=== PATIENT | male | born 1970 | race Caucasian/White ===

== ENCOUNTER → 2020-09-21 15:42 | Outpatient (BNVA) | payer OTHER, SELFPAY | PROVIDERS: PCP Internal Medicine; Referring Provider Internal Medicine; Visit Provider Urology | DX: Z76.89 Persons encountering health services in other specified circumstances (principal) ==

== ENCOUNTER 2021-10-24 14:28 | Outpatient (REF) | payer OTHER, SELFPAY ==
--- NOTE | ~2021-10-24 | US_ITS ---
EXAMINATION: US RETROPERITONEAL LIMITED (RENAL ONLY) CLINICAL INFORMATION: Calculus of kidney. COMPARISON: Renal ultrasound 05/26/2019. Ultrasound kidneys and bladder 06/09/2018. TECHNIQUE: Real-time imaging of the kidneys. FINDINGS: RIGHT KIDNEY: 12.0 x 4.3 x 4.4 cm (SAG x AP x TRV). The kidney is normal in size, contour, and echogenicity. Renal cortical thickness is normal. No calculi or focal parenchymal lesions. No hydronephrosis. LEFT KIDNEY: 11.4 x 4.7 x 6.6 cm (SAG x AP x TRV). The kidney is normal in size, contour, and echogenicity. Renal cortical thickness is normal. No focal parenchymal lesions or hydronephrosis. Echogenic focus lower pole left kidney likely a nonobstructing stone 6 x 2 mm and 9 x 7 mm. US/US renal BI IMPRESSION: Redemonstration of probably nonobstructing stone lower pole left kidney. No hydronephrosis.
== END 2021-10-24 14:29 | disposition home or self-care (01) ==
LOC: HO.US 14:28
PROVIDERS: PCP Internal Medicine; Visit Provider Urology
DX: N20.0 Calculus of kidney (principal); R31.29 Other microscopic hematuria
CPT/HCPCS: 76775

== ENCOUNTER → 2021-11-07 11:27 | Outpatient (BNVA) | payer OTHER, SELFPAY | PROVIDERS: Visit Provider Urology ==

== ENCOUNTER 2021-11-21 05:55 | Day surgery (SDC) | payer OTHER, SELFPAY ==
[2021-11-15 11:02] VITALS: BMI 31.7
--- NOTE | 2021-11-20 09:42 | HO.ANESPROP2 ---
Documented by User: Benita Grayson NP 11/20/21 09:42 HPI - Anesthesia Eval Consult details Narrative: 51yo M for Left ESWL No prev ESWL on record [facility] Active Problems Active Problems: All Active Problems (Updated 11/15/21 @ 11:01 by Eboni Rollins, RN) Microscopic hematuria (Acute) Weak urinary stream (Acute) Bladder outlet obstruction (Acute) Nocturia associated with benign prostatic hyperplasia (Acute) Nephrolithiasis (Acute) Past Medical History Medical History Arthritis Kidney stones Smoker Surgical History Surgical History (Updated 11/15/21 @ 11:01 by Eboni Rollins, RN) History of left knee surgery History of right inguinal hernia repair History of right knee surgery History of shoulder surgery Social History Social History Are you a primary home care and home health aides teacher to a significant other at home: No Do you presently have visiting nurse or other home services: No Patient Tobacco Use Status: Current everyday Tobacco user Tobacco use type: Cigarette Cigarette Packs Per Day: 0.5 Cigarettes Per Day: 10.0 Years Smoked: 10 Use of substances other than those prescribed or required for medical reasons: No Have you been hit, kicked, punched, or otherwise hurt by someone within the past year? If so, by whom?: No Are you DNR?: No Advance Directives: No Advance Directives Information Provided: No Advance Directives on File: No Recently lost weight without trying: No Eating poorly because of decreased appetite: No Nutrition Risks: No Nutritional Risk Meds Allergies Allergy/AdvReac Type Severity Reaction Status Date / Time No Known Allergies Allergy Verified 11/15/21 11:01 Exam Exam Date and Time: November 20, 2021 0942 Height,Weight and Vital Signs: Height 5 ft 9 in Weight 97.522 kg Assessment and Plan Assessment Anesthesia Assessment: Chart Reviewed Documented by User: Sonja Jean MD 11/21/21 07:02 [facility] Past Medical History Medical History Arthritis Kidney stones Smoker Family History Family history of problems with anesthesia: No Surgical History Surgical History (Updated 11/15/21 @ 11:01 by Eboni Rollins RN) History of left knee surgery History of right inguinal hernia repair History of right knee surgery History of shoulder surgery History of Problems with Anesthesia: No Social History Social History Are you a primary home care and home health aides teacher to a significant other at home: No Do you presently have visiting nurse or other home services: No Patient Tobacco Use Status: Current everyday Tobacco user Tobacco use type: Cigarette Cigarette Packs Per Day: 0.5 Cigarettes Per Day: 10.0 Years Smoked: 10 Use of substances other than those prescribed or required for medical reasons: No Have you been hit, kicked, punched, or otherwise hurt by someone within the past year? If so, by whom?: No Are you DNR?: No Advance Directives: No Advance Directives Information Provided: No Advance Directives on File: No Recently lost weight without trying: No Eating poorly because of decreased appetite: No Nutrition Risks: No Nutritional Risk Meds Allergies Allergy/AdvReac Type Severity Reaction Status Date / Time No Known Allergies Allergy Verified 11/15/21 11:01 Exam Airway Mallampati Class: II (Caps laterally) TM Dist: >3cm Neck ROM: Full Heart: rrr Lungs: cta Assessment and Plan Assessment Anesthesia Assessment: Anesthesia Plan Discussed and Chart Reviewed Final Anesthetic Review Family History of Problems with Anesthesia: No History of Problems with Anesthesia: No NPO: Yes ASA Class: II Final Preanesthetic Review: No Changes in Pt Med Stat, Meds/Allgs Chart Reviewed and Consent Obtained/Reviewed Patient Risk: Intermediate Procedure Risk: Intermediate Anesthetic Plan Anesthetic Plan: MAC: Disposition: Standard PACU
--- NOTE | ~2021-11-21 | XR_ITS ---
EXAMINATION: XR ABDOMEN KUB CLINICAL INDICATION: Nephrolithiasis. COMPARISON: Ultrasound renal 10/24/2021. TECHNIQUE: AP view of the abdomen. FINDINGS: There is scattered stool in the colon without any significant distention. There is no organomegaly. No radiopaque calculi. There is a right inguinal hernia repair and a phlebolith in left pelvis. No gross bony abnormality. XR/XR KUB IMPRESSION: No radiopaque calculi seen. Radiopaque density in the left pelvis is most likely a phlebolith.
[2021-11-21 06:43] VITALS: BP 112/77; PULSE 71; RESP 16; TEMP 36.2; O2SAT 96
[2021-11-21] MEDS: Lactated Ringers 1,000 ML 100 ML IVCONT (06:59)
--- NOTE | 2021-11-21 07:37 | MHC.SHP ---
Pre-Procedural Eval Section A Date of Service: 11/21/21 The patient is an INPATIENT: No Changes since office visit: No Cold of Flu in the past 2 weeks, No New Medical Problems, No Changes in Medication and No Patient answered all questions The History & Physical has been completed within 30 days and I have reviewed it.: Yes Section B Chief Complaint: calculus of kidney Details of Present Illness: and trial of alpha vickie Allergies: Allergies Allergy/AdvReac Type Severity Reaction Status Date / Time No Known Allergies Allergy Verified 11/15/21 11:01 Plan Diagnosis/Plan: Unchanged (Left ESWl and cystoscopy) I have reviewed the history and physical and performed a pertinent physical examination on my patient. No changes have occurred unless specified.
--- NOTE | 2021-11-21 08:11 | P.OP_ITS ---
Operative Note Operative Note Date of Service: 11/21/21 Narrative: PreOperative Diagnosis: Left Renal stones Post Operative Diagnosis: Left Renal stones Procedure: Left ESWL Surgeon: Dr Julio Peralta Anesthesia: mac/sedation Indications for procedure: The patient understands ESWL may be a staged procedure and subsequent intervention may be required based on imaging after ESWL. They also understand there is a risk of bleeding to the kidney, infection, damage to adjacent organs, and stone migration following the procedure. - Imaging ultrasound with left 8 mm stone Procedure: After informed consent was verified the patient was brought to the operating room and placed in a supine position. Anesthesia was performed per protocol. Safety pause time-out was performed. Imaging was displayed in the room and laterality confirmed. ESWL was performed. The 1st 500 shocks were performed at 60 hertz. These were performed with increasing power. Once maximum power was reached the rate was increased to 180 hertz. A total of 2500 shocks were given. Targetted imaging with ultrasound/fluoroscopy showed stone smudging suggestive of disintegration. The patient tolerated the procedure well and was transferred to the recovery area upon completion. Post procedure imaging will be organized. There was no e vidence for flank discoloration.
[2021-11-21 08:34] VITALS: BP 113/77; PULSE 77; RESP 16; TEMP 36.2; O2SAT 96
[2021-11-21 08:50] VITALS: BP 116/87; PULSE 73; RESP 16; TEMP 36.3; O2SAT 96
[2021-11-21] MEDS: Acetaminophen 325 MG TABLET 650 MG PO (08:50)
== END 2021-11-21 09:40 | disposition home or self-care (01) ==
PROVIDERS: PCP Internal Medicine; Visit Provider Urology
PROC: (CPT 50590; principal; 2021-11-21 07:30)
DX: N20.0 Calculus of kidney (principal); N40.1 Benign prostatic hyperplasia with lower urinary tract symptoms; R35.1 Nocturia; R31.29 Other microscopic hematuria; N32.0 Bladder-neck obstruction; R39.12 Poor urinary stream; Z79.899 Other long term (current) drug therapy; F17.210 Nicotine dependence, cigarettes, uncomplicated
CPT/HCPCS: 50590; 74018; J2250; J3010

== ENCOUNTER 2021-11-27 15:14 | Outpatient (REF) | payer OTHER, SELFPAY ==
[2021-11-27 16:13] LABS: Appearance Urine CLEAR; Color Urine DK YELLOW; Glucose Urine UA NEG (NEG); Leukocyte Esterase Urine NEG (NEG); Nitrite Urine NEG (NEG); Specific Gravity - Urine 1.025 (1.005-1.025); Urine Blood 1+ (NEG); Urine Ketones NEG (NEG); Urine Protein NEG (NEG-TRACE)
[2021-11-27 16:33] LABS: Bacteria Urine 2+ /LPF; Mucus Urine 1+ /LPF; Squamous Epithelial Cell Urine 1+ /LPF
== END 2021-11-27 15:15 | disposition home or self-care (01) ==
LOC: HO.LAB 15:14
PROVIDERS: PCP Internal Medicine; Visit Provider Urology
DX: N20.0 Calculus of kidney (principal)
CPT/HCPCS: 81001; 87086; 87088; 87186

== ENCOUNTER → 2021-12-12 08:42 | Outpatient (BNVA) | payer OTHER, SELFPAY | PROVIDERS: PCP Internal Medicine; Visit Provider Urology | DX: N20.0 Calculus of kidney (principal) | CPT/HCPCS: 99212 ==

== ENCOUNTER 2021-12-19 13:04 | Outpatient (REF) | payer OTHER, SELFPAY ==
--- NOTE | ~2021-12-19 | US_ITS ---
EXAMINATION: US RETROPERITONEAL LIMITED (RENAL ONLY) CLINICAL INFORMATION: Calculus of kidney. COMPARISON: X-ray KUB 11/21/2021. Renal ultrasound 10/24/2021 and 05/26/2019. TECHNIQUE: Real-time imaging of the kidneys. FINDINGS: RIGHT KIDNEY: 10.3 x 4.7 x 5.9 cm (SAG x AP x TRV). The kidney is normal in size, contour, and echogenicity. Renal cortical thickness is normal. No calculi or focal parenchymal lesions. No hydronephrosis. LEFT KIDNEY: 12.1 x 5.7 x 5.5 cm (SAG x AP x TRV). The kidney is normal in size, contour, and echogenicity. Renal cortical thickness is normal. No focal parenchymal lesions or hydronephrosis. Nonshadowing echogenic focus in the left renal lower pole measures up to 6 mm potentially representing a nonshadowing calculus. US/US renal BI IMPRESSION: 1. Nonshadowing echogenic focus in the left renal lower pole measures up to 6 mm potentially representing a nonshadowing calculus without hydronephrosis, stable. 2. No right-sided nephrolithiasis or hydronephrosis.
== END 2021-12-19 13:05 | disposition home or self-care (01) ==
LOC: HO.US 13:04
PROVIDERS: PCP Internal Medicine; Visit Provider Urology
DX: N20.0 Calculus of kidney (principal)
CPT/HCPCS: 76775

== ENCOUNTER → 2022-06-14 13:15 | Outpatient (BNVA) | payer OTHER, SELFPAY | PROVIDERS: PCP Internal Medicine; Visit Provider Urology | DX: R97.20 Elevated prostate specific antigen [PSA] (principal); R31.29 Other microscopic hematuria; N20.0 Calculus of kidney | CPT/HCPCS: 99212 ==

== ENCOUNTER 2022-06-20 06:00 | Outpatient (REF) | payer OTHER, SELFPAY ==
[2022-06-20 08:14] LABS: PSA,Total (Free>4and<10) 4.03 ng/mL (0.00-4.00)
[2022-06-21 08:52] LABS: Free Prostate Spec Ag 0.5 ng/mL; Percent Free Prostate Spec Ag 13 % (calc) (>25); Prostate Specific Ag Total 3.9 ng/mL (< OR = 4.0)
== END 2022-06-20 06:01 | disposition home or self-care (01) ==
LOC: HO.LAB 06:00
PROVIDERS: PCP Internal Medicine; Visit Provider Urology
DX: R97.20 Elevated prostate specific antigen [PSA] (principal); Z12.5 Encounter for screening for malignant neoplasm of prostate
CPT/HCPCS: 36415; 84153; 84154

== ENCOUNTER 2022-10-18 13:29 | Outpatient (REF) | payer OTHER, SELFPAY ==
[2022-10-18 15:04] LABS: PSA,Total (Free>4and<10) 4.13 ng/mL (0.00-4.00)
[2022-10-22 07:29] LABS: Free Prostate Spec Ag 0.7 ng/mL; Percent Free Prostate Spec Ag 18 % (calc) (>25)
== END 2022-10-18 13:30 | disposition home or self-care (01) ==
LOC: HO.LAB 13:29
PROVIDERS: PCP Internal Medicine; Visit Provider Urology
DX: R97.20 Elevated prostate specific antigen [PSA] (principal); Z12.5 Encounter for screening for malignant neoplasm of prostate
CPT/HCPCS: 36415; 84153; 84154

== ENCOUNTER 2022-10-29 12:46 | Outpatient (REF) | payer OTHER, SELFPAY ==
[2022-10-29 17:17] LABS: Urine Cytology See Pathology rpt
== END 2022-10-29 12:47 | disposition home or self-care (01) ==
LOC: HO.LAB 12:46
PROVIDERS: PCP Internal Medicine; Visit Provider Urology
DX: R31.29 Other microscopic hematuria (principal); R39.12 Poor urinary stream; R97.20 Elevated prostate specific antigen [PSA]
CPT/HCPCS: 51798; 88112; 99212

== ENCOUNTER 2022-12-10 15:04 | Outpatient (REF) | payer OTHER, SELFPAY ==
--- NOTE | ~2022-12-10 | US_ITS ---
EXAMINATION: US RETROPERITONEAL LIMITED (RENAL ONLY) CLINICAL INFORMATION: Renal calculus. COMPARISON: Prior renal ultrasound 12/19/2021. TECHNIQUE: Ultrasound of the kidneys was performed. FINDINGS: RIGHT KIDNEY: 11.6 x 4.3 x 6.4 cm (SAG x AP x TRV). The kidney is normal in size, contour, and echogenicity. Renal cortical thickness is normal. No calculi or focal parenchymal lesions. No hydronephrosis. LEFT KIDNEY: 12.4 x 5.6 x 4.8 cm (SAG x AP x TRV). The kidney is normal in size, contour, and echogenicity. Renal cortical thickness is normal. There is a linear echogenic area in the cortex on the left 7 mm below the renal capsule that measures 4 x 2 x 3 mm. In retrospect I believe this can be seen on the prior exam (image 35/35). No additional calculi or focal parenchymal lesions. No hydronephrosis. Incidental note made of hepatic steatosis. US/US renal BI IMPRESSION: A 4 mm echogenic focus in the left kidney. This could represent a tiny calcification. It is difficult to determine whether this is a stone or parenchymal calcification. Incidentally noted hepatic steatosis.
== END 2022-12-10 15:05 | disposition home or self-care (01) ==
LOC: HO.US 15:04
PROVIDERS: Visit Provider Urology
DX: N20.0 Calculus of kidney (principal)
CPT/HCPCS: 76775

== ENCOUNTER 2022-12-13 07:37 | Outpatient (REF) | payer OTHER, SELFPAY ==
[2022-12-13 07:46] VITALS: BMI 32.5
[2022-12-13 07:48] VITALS: BP 140/94; PULSE 84; RESP 16; TEMP 36.4; O2SAT 96
--- NOTE | 2022-12-13 08:15 | W.PM.OPN ---
Operative Note Operative Note Date of Service: 12/13/22 Narrative: Preoperative diagnosis: Elevated PSA Postoperative diagnosis: Elevated PSA Procedure: 1. transrectal ultrasound measurement of prostate 2. transrectal ultrasound-guided pudendal nerve block 3. transrectal ultrasound-guided prostate biopsy 12 core Surgeon: Dr. Julio Peralta Anesthetic: Local Indications for procedure: Elevated PSA 4.2 Procedure: After informed consent was verified, the patient was brought into the procedure area and lay left-hand side down on the table. Patient identity confirmed. Perioperative antibiotics confirmed. Safety pause time out performed. SACHIN performed to dilate rectal sphincter Iodine 10cc with Gel was placed per rectum Ultrasound probe was placed per rectum The prostate was measured in 3 dimensions Total volume equals 55 gm No cystic structures were noted No calcifications were noted at the surgical margin The prostate was otherwise homogeneous in nature An ultrasound-guided pudendal nerve block was performed using 10 cc of 1% lidocaine. 8 cc was placed at the base and 2 cc of the apex. A 12 core biopsy was performed with 6 cores each side. Two cores were taken at the apex, mid and base. Cores were spaced between lateral and medial. He tolerated the procedure well. Was able to ambulate to bathroom after 5 minutes. Printed instructions regarding antibiotic use and common side effects such as low-grade temperature, potential infection and bleeding were given Pathology: 12 core prostate biopsy.
[2022-12-13 08:20] VITALS: BP 149/83; PULSE 76; RESP 16; O2SAT 97
== END 2022-12-13 07:38 | disposition home or self-care (01) ==
LOC: HO.MS 07:37
PROVIDERS: PCP Internal Medicine; Visit Provider Urology
PROC: (CPT 55700; principal; 2022-12-13 08:00)
DX: R97.20 Elevated prostate specific antigen [PSA] (principal); N42.31 Prostatic intraepithelial neoplasia
CPT/HCPCS: 55700; 76942; 88305; 88344

== ENCOUNTER → 2022-12-20 12:15 | Outpatient (BNVA) | payer OTHER, SELFPAY | PROVIDERS: PCP Internal Medicine; Visit Provider Urology | DX: Z13.89 Encounter for screening for other disorder (principal) ==

== ENCOUNTER 2023-09-02 06:22 | Outpatient (REF) | payer OTHER, SELFPAY ==
[2023-09-02 07:47] LABS: PSA,Total (Free>4and<10) 3.43 ng/mL (0.00-4.00)
== END 2023-09-02 06:23 | disposition home or self-care (01) ==
LOC: HO.LAB 06:22
PROVIDERS: PCP Internal Medicine; Visit Provider Urology
DX: Z12.5 Encounter for screening for malignant neoplasm of prostate (principal); R97.20 Elevated prostate specific antigen [PSA]
CPT/HCPCS: 36415; 84153

== ENCOUNTER 2023-09-05 08:49 | Outpatient (AMB) | payer OTHER, SELFPAY ==
--- NOTE | 2023-09-05 08:50 | MHC.OFFVIS ---
Intake Intake Visit Reasons: 6m/PSA(set) Intake Note: Patient is Present for Telephone Follow Up For Urology Med: Finasteride, Terazosin Antibiotic Allergy: None Blood Thinner: None Allergies No Known Allergies Allergy (Verified 09/05/23 08:51) Medication List - Last Reconciled 09/05/23 by Julio Peralta MD finasteride 5 mg PO BEDTIME 90 days terazosin 5 mg PO BEDTIME 90 days HPI HPI Comments History of Present Illness Details Jun is a pleasant male. He is a patient of Dr. Hamilton. 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 Telemedicine Evaluation 15 min Conultation [employer] [place] Video attempted PSA 09/11 3.4 Continue 6 monthly review Elevated PSA PSA 04/10 9.3 ([place]), 07/11 4.0, 10/10 4.0 18% Off finasteride Maternal Uncle with Prostate Cancer 12/12 Biopsy - HGPIN - Volume 55gm Lower urinary tract symptoms Noticed that he is developing weakness of stream Has feelings of incomplete emptying with restriction, Has nocturia x2 Current medication terazosin 5 mg Prior medication tamsulosin Nephrolithiasis Kidney stones found on the ultrasound imaging for hematuria Left sided 2 stones - 6 mm and 9mm Intervention - 12/11 left ESWL Imaging - 01/08 US 6mm Microscopic Hematuria: Yearly review Microscopic hematuria 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 Since the last visit the patient has has not noticed gross hematuria, continues to test postive for microscopic hematuria. Relevant medical history for no pertinent medical history - test equivocal over many years - ex tobacco. Associated symptoms include dysuria No frequency No urgency No decreased urinary stream No pain No nausea No weight loss No Radiographic imagin/18 , US renal. Radiology report 06/06 left renal stone 6mm, 50 gm prostate 06/07 , renal US - no genitourinary abnormality. Other investigations cytology, , normal. Cystoscopy findings 06/07 high riding bladder neck, irritation of bladder prostate from coffee. [facility] Medical History Arthritis Smoker Kidney stones Surgical History History of right inguinal hernia repair History of shoulder surgery History of right knee surgery History of left knee surgery Social History Are you a primary intensive care nurse to a significant other at home: No Do you presently have visiting nurse or other home services: No Patient Tobacco Use Status: Current everyday Tobacco user Tobacco use type: Cigarette Cigarette Packs Per Day: 0.5 Cigarettes Per Day: 10.0 Years Smoked: 10 Review of Systems Const All systems reviewed & are unremarkable except as noted in HPI and below Reports no additional complaints Resp Reports no additional complaints GI Reports no additional complaints Reports as per HPI Musc Reports no additional complaints Physical Exam Telemedicine evaluation Appropriate responses Regular breathing rate and rhythm HEENT Head: Yes normal to inspection Ears: hearing grossly normal bilaterally Eyes General: appearance normal, both eyes and all related structures Neck Neck: Yes normal visual inspection Chest Chest palpation & inspection: normal inspection of the chest Resp Effort & Inspection: normal respiratory effort and able to speak in complete sentences Assessment & Plan Assessment & Plan (1) Elevated PSA: Code(s): R97.20 - Elevated prostate specific antigen [PSA] (2) Bladder outlet obstruction: Code(s): N32.0 - Bladder-neck obstruction (3) Nocturia associated with benign prostatic hyperplasia: Code(s): N40.1 - Benign prostatic hyperplasia with lower urinary tract symptoms; R35.1 - Nocturia Plan Continue 6 month review Continue terazosin PSA in 6 months Orders: Orders Prostate Specific Antigen 09/02/23 R97.20 - Elevated prostate specific antigen [PSA] PSA,Total (Free>4and<10) 6 Months N32.0 - Bladder-neck obstruction Medications: Refilled terazosin 5 mg PO BEDTIME 90 caps 1RF 90 days N32.0 - Bladder-neck obstruction, N40.1 - Benign prostatic hyperplasia with lower urinary tract symptoms, R35.0 - Frequency of micturition Discontinued finasteride Discontinued Reason: Doctor's Order 5 mg PO BEDTIME 90 days 90 tabs 1RF N32.0 - Bladder-neck obstruction Patient Instructions: Imaging studies, laboratory and physical exam results were discussed and reviewed in detail. No major barriers to patient understanding were identified. An opportunity to ask questions regarding the treatment plan was provided. All questions were answered. The patient expressed understanding and agreement with the above treatment plan. The patient is aware they should contact our office by phone for worsening of their current condition or the appearance of new urologic symptoms. Compliance is encouraged with any medications and followup testing that is ordered. It is a privilege to participate in the urologic care of your patient. If you have any questions or concerns regarding treatment for the above conditions, or other urologic issues, please do not hesitate to contact me. The office telephone contact is [phone]. This note is constructed using voice recognition software. While every effort has been made to ensure accuracy steel post installer supervisor errors may have been included. Yours sincerely, Dr Julio Peralta MD, [facility] - Urology Providers of Expert, Compassionate Care for the Genitourinary System Telehealth Telehealth Location of provider rendering services: practice address Location of patient: address on file Patient Identification confirmed using: Name, : Yes Telehealth method: video Patient verbally consented to treatment: Yes Patient verbally consented to billing insurance company: Yes Patient informed of any privacy concerns related to visit: Yes Coding Level of Care Code Est Pt Level 4 (28143) Diagnoses Elevated PSA R97.20 Bladder outlet obstruction N32.0 Nocturia associated with benign prostatic hyperplasia N40.1; R35.1
== END 2023-09-05 09:38 | disposition home or self-care (01) ==
LOC: HO.HUSH 08:50
PROVIDERS: PCP Internal Medicine; Visit Provider Urology
DX: R97.20 Elevated prostate specific antigen [PSA] (principal); N32.0 Bladder-neck obstruction; N40.1 Benign prostatic hyperplasia with lower urinary tract symptoms; R35.1 Nocturia
CPT/HCPCS: 99214

== ENCOUNTER → 2023-09-05 08:49 | Outpatient (BNVA) | payer OTHER, SELFPAY | PROVIDERS: PCP Internal Medicine; Visit Provider Urology | DX: N32.0 Bladder-neck obstruction (principal); R97.20 Elevated prostate specific antigen [PSA]; N40.1 Benign prostatic hyperplasia with lower urinary tract symptoms; N13.8 Other obstructive and reflux uropathy; R35.1 Nocturia | CPT/HCPCS: 99212 ==

== ENCOUNTER 2024-05-15 07:07 | Outpatient (REF) | payer OTHER, SELFPAY ==
[2024-05-15 09:19] LABS: PSA,Total (Free>4and<10) 2.97 ng/mL (0.00-4.00)
== END 2024-05-15 07:08 | disposition home or self-care (01) ==
LOC: HO.LAB 07:07
PROVIDERS: Visit Provider Urology
DX: N32.0 Bladder-neck obstruction (principal); Z12.5 Encounter for screening for malignant neoplasm of prostate
CPT/HCPCS: 36415; 84153

== ENCOUNTER 2024-05-19 08:31 | Outpatient (AMB) | payer OTHER, SELFPAY ==
--- NOTE | 2024-05-19 08:34 | MHC.OFFVIS ---
Intake Visit Reasons: 6M Follow Up-PSA/PVR/Med Review(set) Intake Note: Patient presents for follow up on: elevated psa and nocturia Urology Med: Terazosin Antibiotic Allergy: None Blood Thinner: None PVR: 35ml's Production Team Leader Required: No Accompanied by: Self / Same As Patient Allergies No Known Allergies Allergy (Verified 05/19/24 08:38) Medication List - Last Reconciled 05/19/24 by Julio Peralta MD terazosin 5 mg PO BEDTIME 90 days HPI Comments Details: Jun is a pleasant male. He is a patient of Dr. Hamilton. 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 Effective voiding performance Happy with current situation PSA 05/12 3.0 Twelve month follow-up Elevated PSA [place] 9[place] 07/11 4.0, 10/10 4.0 18% Off finasteride Maternal Uncle with Prostate Cancer 12/12 Biopsy - HGPIN - Volume 55gm Lower urinary tract symptoms Noticed that he is developing weakness of stream Has feelings of incomplete emptying with restriction, Has nocturia x2 Current medication terazosin 5 mg Prior medication tamsulosin Nephrolithiasis Kidney stones found on the ultrasound imaging for hematuria Left sided 2 stones - 6 mm and 9mm Intervention - 12/11 left ESWL Imaging - 01/08 US 6mm Microscopic Hematuria: Yearly review 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 Since the last visit the patient has has not noticed gross hematuria, continues to test postive for microscopic hematuria. Relevant medical history for no pertinent medical history - test equivocal over many years - ex tobacco. Associated symptoms include dysuria No frequency No urgency No decreased urinary stream No pain No nausea No weight loss No Radiographic imagin/18 , US renal. Radiology report 06/06 left renal stone 6mm, 50 gm prostate 06/07 , renal US - no genitourinary abnormality. Other investigations cytology, , normal. Cystoscopy findings 06/07 high riding bladder neck, irritation of bladder prostate from coffee. [facility] Medical History Arthritis Smoker Kidney stones Surgical History History of right inguinal hernia repair History of shoulder surgery History of right knee surgery History of left knee surgery Social History Are you a primary personal care worker to a significant other at home: No Do you presently have visiting nurse or other home services: No Patient Tobacco Use Status: Current everyday Tobacco user Tobacco use type: Cigarette Cigarette Packs Per Day: 0.5 Cigarettes Per Day: 10.0 Years Smoked: 10 Review of Systems Const Denies chills and Denies fever(s) Card Reports no additional complaints and Denies syncope Resp Denies cough GI Denies abdominal pain and Denies heartburn Reports as per HPI and Denies change in libido Neuro Denies syncope Psych Denies change in libido Endo Denies change in libido Physical Exam Const General: cooperative, healthy appearing, comfortable and no acute distress Orientation/consciousness: patient oriented x3 HEENT Face and sinus: Yes normal facial exam Mouth: moist mucous membranes Neck Neck: Yes normal visual inspection, Yes full ROM and Yes trachea midline Chest Chest palpation & inspection: normal inspection of the chest Resp Effort & Inspection: normal respiratory effort, able to speak in complete sentences and no respiratory distress GI Inspection: Yes normal to inspection Back/Spine/Pelvis Cervical Spine: normal cervical lordosis Thoracic/Lumbar Spine: thoracic and lumbar spine normal to inspection Skin General skin exam: no rashes or lesions noted Neuro General: patient oriented x3, gait normal, tone normal and moves all extremities Extrem General: Yes normal to inspection and Yes capillary refill normal Office Procedures Post Void Residual Post Residual Void Post Void Residual (PVR): 35 [id number] Void Residual by ultrasound Results AMB Urinalysis, Automated UA Leukoctes 0 Shruthi/uL Last Edit by Juan Manuel Velasco on 05/19/24 08:47 UA Nitrite Last Edit by Juan Manuel Velasco on 05/19/24 08:47 UA Urobilinogen 0.2 mg/dL Last Edit by Juan Manuel Velasco on 05/19/24 08:47 UA Protein 0 mg/dL Last Edit by Juan Manuel Velasco on 05/19/24 08:47 UA pH 6.0 Last Edit by Juan Manuel Velasco on 05/19/24 08:47 UA Blood 10 Eleazar/uL Last Edit by Juan Manuel Velasco on 05/19/24 08:47 UA Specific [place] 1.015 Last Edit by Juan Manuel Velasco on 05/19/24 08:47 UA Ketone Negative Last Edit by Juan Manuel Michellexuan on 05/19/24 08:47 UA Bilirubin 0 mg/dL Last Edit by Juan Manuel Velasco on 05/19/24 08:47 UA Glucose 0 mg/dL Last Edit by Juan Manuel Velasco on 05/19/24 08:47 Results Reviewed Results Reviewed: Laboratory Last Values Urine pH (Auto) 6.0 05/19/24 08:38 Specific [place] (Auto) 1.015 05/19/24 08:38 Urine Protein (Auto) 0 mg/dL 05/19/24 08:38 Glucose (UA)(Auto) 0 mg/dL 05/19/24 08:38 Urine Ketones (Auto) Negative 05/19/24 08:38 Urine Blood (Auto) 10 Eleazar/uL 05/19/24 08:38 Urine Bilirubin (Auto) 0 mg/dL 05/19/24 08:38 Urine Urobilinogen (Auto) 0.2 mg/dL 05/19/24 08:38 Leukocyte Esterase (Auto) 0 Shruthi/uL 05/19/24 08:38 Assessment & Plan Assessment & Plan (1) Elevated PSA: Code(s): R97.20 - Elevated prostate specific antigen [PSA] Category: Medical (2) Bladder outlet obstruction: Code(s): N32.0 - Bladder-neck obstruction Category: Medical (3) Weak urinary stream: Code(s): R39.12 - Poor urinary stream Category: Medical Plan Twelve month follow-up PSA and PVR Orders: Orders Urine Cytology Today R31.29 - Other microscopic hematuria AMB Urinalysis Automated Today Z13.9 - Encounter for screening, unspecified AMB Post Void Residual by ultrasound Today R39.12 - Poor urinary stream Prostate Specific Antigen 364 Days N32.0 - Bladder-neck obstruction Medications: Refilled terazosin 5 mg PO BEDTIME 90 caps 3RF 90 days N32.0 - Bladder-neck obstruction, N40.1 - Benign prostatic hyperplasia with lower urinary tract symptoms, R35.0 - Frequency of micturition Patient Instructions: Imaging studies, laboratory and physical exam results were discussed and reviewed in detail. No major barriers to patient understanding were identified. An opportunity to ask questions regarding the treatment plan was provided. All questions were answered. The patient expressed understanding and agreement with the above treatment plan. The patient is aware they should contact our office by phone for worsening of their current condition or the appearance of new urologic symptoms. Compliance is encouraged with any medications and followup testing that is ordered. It is a privilege to participate in the urologic care of your patient. If you have any questions or concerns regarding treatment for the above conditions, or other urologic issues, please do not hesitate to contact me. The office telephone contact is [phone]. This note is constructed using voice recognition software. While every effort has been made to ensure accuracy process trainer errors may have been included. Yours sincerely, Dr Julio Peralta MD, [facility] - Urology Providers of Expert, Compassionate Care for the Genitourinary System Coding Level of Care Code Est Pt Level 4 (58850) Diagnoses Elevated PSA R97.20 Bladder outlet obstruction N32.0 Weak urinary stream R39.12 CPT Codes Post Residual Void - PVR CPT Code: 04489-Plpi Void Residual by ultrasound ([id number])
== END 2024-05-19 08:57 | disposition home or self-care (01) ==
PROVIDERS: PCP Internal Medicine; Visit Provider Urology
DX: R97.20 Elevated prostate specific antigen [PSA] (principal); N32.0 Bladder-neck obstruction; R39.12 Poor urinary stream; Z13.9 Encounter for screening, unspecified
CPT/HCPCS: 99214

== ENCOUNTER 2024-05-19 08:31 | Outpatient (REF) | payer OTHER, SELFPAY ==
[2024-05-19 16:34] LABS: Urine Cytology See Pathology rpt
== END 2024-05-19 08:32 | disposition home or self-care (01) ==
LOC: HO.LNP 08:31
PROVIDERS: PCP Internal Medicine; Visit Provider Urology
DX: R97.20 Elevated prostate specific antigen [PSA] (principal); R39.12 Poor urinary stream; N32.0 Bladder-neck obstruction
CPT/HCPCS: 51798; 81003; 88112; 99212

== ENCOUNTER 2025-06-10 06:36 | Outpatient (REF) | payer OTHER, SELFPAY ==
[2025-06-10 08:15] LABS: Prostate Specific Antigen 3.86 ng/mL (<0.05-4.0)
== END 2025-06-10 06:37 | disposition home or self-care (01) ==
LOC: HO.LAB 06:36
PROVIDERS: PCP Internal Medicine; Visit Provider Urology
DX: N32.0 Bladder-neck obstruction (principal); Z12.5 Encounter for screening for malignant neoplasm of prostate
CPT/HCPCS: 36415; 84153

== ENCOUNTER 2025-06-14 13:54 | Outpatient (AMB) | payer OTHER, SELFPAY ==
--- NOTE | 2025-06-14 13:53 | MHC.OFFVIS ---
Intake Visit Reasons: 1y/PSA(psa?) Intake Note: Patient presents for follow up on: elevated psa and nocturia Urology Med: Terazosin Antibiotic Allergy: None Blood Thinner: None LABS DONE 06/10/25 : PSA 3.86 PVR: 89 MLS Manager Cath Lab Required: No Accompanied by: Self / Same As Patient Allergies No Known Allergies Allergy (Verified 05/19/24 08:38) HPI Comments Details: Jun is a pleasant male. He is a patient of Dr. Hamilton. 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 PSA 05/12 3.0, 06/13 3.9 Twelve month follow-up PSA and bladder emptying Elevated PSA [place] 9[place] 07/11 4.0, 10/10 4.0 18% Off finasteride Maternal Uncle with Prostate Cancer 12/12 Biopsy - HGPIN - Volume 55gm Lower urinary tract symptoms Noticed that he is developing weakness of stream Has feelings of incomplete emptying with restriction, Has nocturia x2 Current medication terazosin 5 mg Prior medication tamsulosin Nephrolithiasis Kidney stones found on the ultrasound imaging for hematuria Left sided 2 stones - 6 mm and 9mm Intervention - 12/11 left ESWL Imaging - 01/08 US 6mm Microscopic Hematuria: Yearly review 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 Since the last visit the patient has has not noticed gross hematuria, continues to test postive for microscopic hematuria. Relevant medical history for no pertinent medical history - test equivocal over many years - ex tobacco. Associated symptoms include dysuria No frequency No urgency No decreased urinary stream No pain No nausea No weight loss No Radiographic imagin/18 , US renal. Radiology report 06/06 left renal stone 6mm, 50 gm prostate 06/07 , renal US - no genitourinary abnormality. Other investigations cytology, , normal. Cystoscopy findings 06/07 high riding bladder neck, irritation of bladder prostate from coffee. [facility] Medical History Arthritis Smoker Kidney stones Surgical History History of right inguinal hernia repair History of shoulder surgery History of right knee surgery History of left knee surgery Social History Are you a primary animal care assistant to a significant other at home: No Do you presently have visiting nurse or other home services: No Patient Tobacco Use Status: Current everyday Tobacco user Tobacco use type: Cigarette Cigarette Packs Per Day: 0.5 Cigarettes Per Day: 10.0 Years Smoked: 10 Review of Systems Const Denies chills and Denies fever(s) Card Reports no additional complaints and Denies syncope Resp Denies cough GI Denies abdominal pain and Denies heartburn Reports as per HPI and Denies change in libido Neuro Denies syncope Psych Denies change in libido Endo Denies change in libido Physical Exam Const General: cooperative, healthy appearing, comfortable and no acute distress Orientation/consciousness: patient oriented x3 HEENT Face and sinus: Yes normal facial exam Mouth: moist mucous membranes Neck Neck: Yes normal visual inspection, Yes full ROM and Yes trachea midline Chest Chest palpation & inspection: normal inspection of the chest Resp Effort & Inspection: normal respiratory effort, able to speak in complete sentences and no respiratory distress GI Inspection: Yes normal to inspection Back/Spine/Pelvis Cervical Spine: normal cervical lordosis Thoracic/Lumbar Spine: thoracic and lumbar spine normal to inspection Skin General skin exam: no rashes or lesions noted Neuro General: patient oriented x3, gait normal, tone normal and moves all extremities Extrem General: Yes normal to inspection and Yes capillary refill normal Office Procedures Post Void Residual Post Residual Void Post Void Residual (PVR): 89 [id number] Void Residual by ultrasound Results AMB Urinalysis, Automated UA Leukoctes 0 Shruthi/uL Last Edit by BRIANNE Erickson on 06/14/25 14:10 UA Nitrite Negative Last Edit by BRIANNE Erickson on 06/14/25 14:10 UA Urobilinogen 0.2 mg/dL Last Edit by BRIANNE Erickson on 06/14/25 14:10 UA Protein 0 mg/dL Last Edit by BRIANNE Erickson on 06/14/25 14:10 UA pH 6.0 Last Edit by BRIANNE Erickson on 06/14/25 14:10 UA Blood 25 Eleazar/uL Last Edit by BRIANNE Erickson on 06/14/25 14:10 UA Specific [place] 1.030 Last Edit by BRIANNE Erickson on 06/14/25 14:10 UA Ketone Negative Last Edit by BRIANNE Erickson on 06/14/25 14:10 UA Bilirubin 0 mg/dL Last Edit by BRIANNE Erickson on 06/14/25 14:10 UA Glucose 0 mg/dL Last Edit by BRIANNE Erickson on 06/14/25 14:10 Results Reviewed Results Reviewed: Laboratory Last Values Urine pH (Auto) 6.0 06/14/25 14:09 Specific [place] (Auto) 1.030 06/14/25 14:09 Urine Protein (Auto) 0 mg/dL 06/14/25 14:09 Glucose (UA)(Auto) 0 mg/dL 06/14/25 14:09 Urine Ketones (Auto) Negative 06/14/25 14:09 Urine Blood (Auto) 25 Eleazar/uL 06/14/25 14:09 Urine Nitrite (Auto) Negative 06/14/25 14:09 Urine Bilirubin (Auto) 0 mg/dL 06/14/25 14:09 Urine Urobilinogen (Auto) 0.2 mg/dL 06/14/25 14:09 Leukocyte Esterase (Auto) 0 Shruthi/uL 06/14/25 14:09 Assessment & Plan Assessment & Plan (1) Microscopic hematuria: Code(s): R31.29 - Other microscopic hematuria Category: Medical (2) Bladder outlet obstruction: Code(s): N32.0 - Bladder-neck obstruction Category: Medical Plan Twelve month follow-up office Orders: Orders AMB Urinalysis Automated Today Z13.9 - Encounter for screening, unspecified AMB Post Void Residual by ultrasound Today N40.1 - Benign prostatic hyperplasia with lower urinary tract symptoms, R35.1 - Nocturia PSA,Total (Free>4and<10) 12 Months N32.0 - Bladder-neck obstruction Medications: Refilled terazosin 5 mg PO BEDTIME 90 caps 3RF 90 days N32.0 - Bladder-neck obstruction, N40.1 - Benign prostatic hyperplasia with lower urinary tract symptoms, R35.0 - Frequency of micturition Patient Instructions: This note is constructed using voice recognition software. While every effort has been made to ensure accuracy dental equipment technician errors may have been included. Imaging studies, laboratory and physical exam results were discussed and reviewed in detail. No major barriers to patient understanding were identified. An opportunity to ask questions regarding the treatment plan was provided. All questions were answered. The patient expressed understanding and agreement with the above treatment plan. The patient is aware they should contact our office by phone for worsening of their current condition or the appearance of new urologic symptoms. Compliance is encouraged with any medications and followup testing that is ordered. It is a privilege to participate in the urologic care of your patient. If you have any questions or concerns regarding treatment for the above conditions, or other urologic issues, please do not hesitate to contact me. The office telephone contact is [phone]. Sincerely, Dr Julio Peralta MD, [facility] - Urology Compassionate Specialist Care for the Genitourinary System Coding Level of Care Code Est Pt Level 4 (09033) Complex EM visit Add On G2211 Diagnoses Microscopic hematuria R31.29 Bladder outlet obstruction N32.0 CPT Codes Post Residual Void - PVR CPT Code: 67933-Zvbv Void Residual by ultrasound ([id number])
--- OUTSIDE RECORDS SUMMARY | 2025-06-14 14:49 | XMS_ITS | Clinical Summary ---
Author Organization [facility] Address [address] [place], [place] [id number] Phone Care Team Providers Care Mid Level Net Developer Name Role Phone Ignacio Lee MD Primary Care Provider [phone] Allergies No known active allergies Social History Tobacco Use Types Packs/Day Years Used Date Smoking Tobacco: Never Assessed Sex and Gender Information Value Date Recorded Sex Assigned at Not on file Legal Sex Male 1:40 PM EST Gender Identity Not on file Sexual Orientation Not on file Plan of Treatment Not on file Medical Devices Not on file Insurance [employer] [facility] Spotistic [facility] Spotistic [facility] [place] [address] [place] [address] [employer] [facility] Member Subscriber Plan / Payer (Ef fective 2009-Present) Name:Matthew Rodrigueser Relation to Subscriber:Self Name:Matthew Rodrigueser Payer ID:[id number] (NAIC) Group ID:[id number] Type:PPO Address: [place] [id number] [facility] [employer] Care Teams Mid Level Net Developer Relationship Specialty Start Date End Date Ignacio Lee MD [address] [place] [address] PCP - General Internal Medicine 12/19/14 Additional Source Comments The information contained in this document represents components of the legal health record. It is not the complete legal health record.[facility]
--- OUTSIDE RECORDS SUMMARY | 2025-06-14 14:49 | XMS_ITS | Clinical Summary ---
Author Organization [facility] [employer] Address [address] [facility] [place] [place] [address] Care Team Providers Care Forging Machine Hand Name Role Phone No, Pcp PERSONAL INSURANCE ADVISOR Primary Care Provider Unavailabl e Social History Tobacco Use Types Packs/Day Years Used Date Smoking Tobacco: Never Assessed Sex and Gender Information Value Date Recorded Sex Assigned at Not on file Legal Sex Male 5:57 AM EST Gender Identity Not on file Sexual Orientation Not on file Plan of Treatment Health Maintenance Due Date Last Done Comments Colorectal Cancer: COLONOSCO PY Screening every 10 yrs (or Modifier) 1969 Depression: Screening Annual ly using PHQ-2/9 in Adults 18 yrs or above (or HM Modifier)([facility]) 1987 Hepatitis C Virus Infection in Adolescents and Adults: Screening (or Modifier) ([facility]) 1987 [facility] Screening Reminder: Zofia valiente for all adults ([facility]) 1987 Tobacco Smoking Cessation: i n Adults excluding Women: Behavioral and Pharmacotherapy Interventions ([facility]) 1987 DTaP/Tdap/Td Vaccines ([facility]) (1 - Tdap) 1988 Colorectal Cancer Screening 45 -75 Yrs (or HM Modifier ) 2014 Colorectal Cancer: FLEXIBLE SIGMOIDOSCOPY Screening every 5 yrs 2014 Colorectal Cancer: Fecal Imm unochemical Test (FIT) Annually [facility] 2014 Colorectal Cancer: High-sens itivity gFOBT Screening Annually [facility] 2014 Colorectal Cancer: Stool Col oguard Screening every 3 yrs 2014 Colorectal Cancer:CT Colonography Screening every 5 yr s 2014 Pneumococcal Vaccination Scr eening: Patients 50+ yrs of age ([facility]) (1 of 1 - PCV) 2019 Zoster/Shingles Vaccine Seri es Screening: Adults aged 18+ yrs (or HM Modifiers)([facility]) (1 of 2) 2019 COVID-19 Vaccine Screening: Initial Series and Booster Status ([facility]) (2023- season) 2024 Flu Vaccination: Yearly for ages 18mos through 64 years (or Modifier)([facility]) 05/20/2025 Medical Devices Not on file Care Teams Forging Machine Hand Relationship Specialty Start Date End Date No, Pcp, PERSONAL INSURANCE ADVISOR N/A Do not use PCP - General Family Medicine 11/20/20
== END 2025-06-14 14:19 | disposition home or self-care (01) ==
LOC: HO.HUSH 13:54
PROVIDERS: PCP Internal Medicine; Visit Provider Urology
DX: R31.29 Other microscopic hematuria (principal); N32.0 Bladder-neck obstruction; Z13.9 Encounter for screening, unspecified
CPT/HCPCS: 99214; G2211

== ENCOUNTER → 2025-06-14 13:54 | Outpatient (BNVA) | payer OTHER, SELFPAY | PROVIDERS: PCP Internal Medicine; Visit Provider Urology | DX: R31.29 Other microscopic hematuria (principal); N32.0 Bladder-neck obstruction | CPT/HCPCS: 51798; 81003; 99212 ==